=== PATIENT | male | born 1985 | race Caucasian/White ===

== ENCOUNTER 2017-05-24 19:20 | Inpatient (IN) | payer OTHER ==
[~2017-05-24] VITALS: Ht 175.3 cm; Wt 148.8 kg
[~2017-05-24 19:20] MED LIST: NORCO 5-325 TA1 EACH PO; TOBREX5 ML OP
[2017-05-24 19:22] VITALS: BP 109/71
[2017-05-24 20:15] LABS: ABSOLUTE NEUTROPHILS 5.5 thou/uL (1.4-8.2); BASOPHILS 0.5 % (0.0-2.0); EOSINOPHILS 2.2 % (0.0-3.0); HEMATOCRIT 41.4 % (42.0-52.0); HEMOGLOBIN 14.5 gm/dL (14.0-18.0); LYMPHOCYTES 24.8 % (24.0-44.0); MANUAL DIFF NO; MCH 29.6 pg (26.0-34.0); MCHC 35.1 g/dL (28.0-37.0); MCV 84.2 fL (80.0-100.0); MONOCYTES 7.1 % (1.0-8.0); PLATELET COUNT 272 thou/uL (150-400); POLYS 65.4 % (36.0-66.0); RBC 4.92 mil/uL (4.50-6.00); RDW 12.6 % (10.5-14.5); WBC 8.4 thou/uL (4.0-11.0)
[2017-05-24] MEDS ORDERED: COZAAR 25 MG TA25 M2 PO (20:21)
[2017-05-24 20:23] LABS: CALCIUM 9.9 mg/dL (8.5-10.1); POTASSIUM 3.5 mmol/L (3.5-5.1)
[2017-05-24 22:55] VITALS: BP 111/59
[2017-05-24 23:25] VITALS: BP 121/77
[2017-05-24] MEDS ORDERED: MULTI-VITAMIN1 EAC5 PO (23:43)
[2017-05-24] MEDS ORDERED: CALCIUM CITRAT200 MG PO (23:50)
[2017-05-24] MEDS ORDERED: ONDANSETRON HCL4 M2 PO (23:50)
[2017-05-25 03:30] VITALS: BP 100/69
[2017-05-25 05:51] LABS: CALCIUM 9.3 mg/dL (8.5-10.1); POTASSIUM 3.6 mmol/L (3.5-5.1)
[2017-05-25 07:20] LABS: HEMATOCRIT 41.1 % (42.0-52.0); HEMOGLOBIN 14.1 gm/dL (14.0-18.0); MCH 29.2 pg (26.0-34.0); MCHC 34.4 g/dL (28.0-37.0); RBC 4.83 mil/uL (4.50-6.00); RDW 12.6 % (10.5-14.5); WBC 5.9 thou/uL (4.0-11.0)
[2017-05-25 08:28] VITALS: BP 127/60
[2017-05-25 10:41] LABS: URINE BILIRUBIN NEGATIVE (Negative); URINE BLOOD NEGATIVE (Negative); URINE COLOR YELLOW; URINE GLUCOSE-RANDOM* NEGATIVE (Negative); URINE KETONES TRACE (Negative); URINE LEUKOCYTES-REFLEX NEGATIVE (Negative); URINE PROTEIN (DIPSTICK) NEGATIVE (Negative); URINE UROBILINOGEN 0.2 E.U./dl (0.2-1.0)
[2017-05-25 16:51] VITALS: BP 127/65
[2017-05-25 19:13] VITALS: BP 118/71
[2017-05-26 03:00] VITALS: BP 104/59
[2017-05-26 05:53] LABS: ALBUMIN 3.3 g/dL (3.4-5.0); CALCIUM 8.9 mg/dL (8.5-10.1); CREATININE 1.3 mg/dL (0.7-1.3); PHOSPHORUS 3.1 mg/dL (2.5-4.9); POTASSIUM 3.4 mmol/L (3.5-5.1)
[2017-05-26 09:25] VITALS: BP 130/78
[2017-05-26 10:18] VITALS: BP 130/78
== END 2017-05-26 10:45 | disposition home or self-care (01) | DRG 683 ==
LOC: ER 19:20 → EROBS 21:48 → 3N 21:48
PROVIDERS: Emergency Medicine; Hospitalist; Nurse Practitioner Family
DX: N17.0 Acute kidney failure with tubular necrosis (principal); Z68.42 Body mass index [BMI] 45.0-49.9, adult; E86.0 Dehydration; I10 Essential (primary) hypertension; Z98.84 Bariatric surgery status
CPT/HCPCS: 10094